=== PATIENT | male | born 1955 | race Hispanic/Latino ===

== ENCOUNTER 2021-04-11 11:28 | Emergency (ER) | payer SELFPAY ==
[2021-04-11 12:35] LABS: #Monocytes 0.3 10x3/uL (0.0-1.1); #Neutrophils 5.9 10x3/uL (1.5-8.4); %Basophils 0.1 % (0.0-2.0); %Monocytes 4.4 % (0.0-10.0); %Neutrophils 86.9 % (40.0-75.0); Hemoglobin 16.2 g/dL (13.5-17.5); Mean Corpuscular HGB CONC 34.5 g/dL (32.0-36.0); Mean Corpuscular Hemoglobin 31.8 pg (27.0-33.0); Mean Corpuscular Volume 92.1 fl (81.2-95.1); Platelet Count 159 10x3/uL (150-450); RBC Distribution Width 12.1 % (11.5-14.5); Red Blood Cell (RBC) Count 5.09 10x6/uL (4.32-5.72); White Blood Cell (WBC) Count 6.8 10x3/uL (3.5-10.5)
[2021-04-11 12:46] LABS: ALT (SGPT) 28 U/L (8-55); AST (SGOT) 74 U/L (5-34); Albumin 3.9 g/dL (3.4-4.8); Alkaline Phosphatase 150 U/L (40-110); Anion Gap 17 mmol/L (10-20); BUN (Urea Nitrogen) 8 mg/dL (8.4-25.7); Bilirubin, Total 0.5 mg/dL (0.2-1.2); Calc. Creatinine Clearance 0 mL/min (70-130); Calcium 8.1 mg/dL (7.8-10.44); Carbon Dioxide 24 mmol/L (23-31); Chloride 98 mmol/L (98-107); Globulin 2.7 g/dL (2.4-3.5); Glucose 144 mg/dL (80-115); Potassium 4.1 mmol/L (3.5-5.1); Protein, Total 6.6 g/dL (5.8-8.1); Sodium 135 mmol/L (136-145)
== END 2021-04-11 16:52 | disposition home or self-care (01) ==
LOC: CSHERS 11:28
DX: U07.1 COVID-19 (principal); J12.82 Pneumonia due to coronavirus disease 2019; J20.8 Acute bronchitis due to other specified organisms
CPT/HCPCS: 71275; 80053; 83605; 84484; 85025; 85379; 93005

== ENCOUNTER 2021-04-11 20:17 | Inpatient (IN) | payer MEDICARE ==
[2021-04-11] MEDS ORDERED: HYDROcodone/Acetaminophen 5/325 mg Tablet PO PRN (23:13)
[2021-04-11] MEDS ORDERED: Ondansetron PF 4 MG/2 ML Vial IVP PRN (23:13)
[2021-04-11] MEDS ORDERED: Acetaminophen 325 MG TAB PO PRN (23:13)
[2021-04-11] MEDS ORDERED: Zolpidem Tartrate 5 MG TAB PO PRN (23:13)
[2021-04-11] MEDS ORDERED: Calcium Carbonate 500 MG ChewTAB PO PRN (23:13)
[2021-04-11] MEDS ORDERED: Senokot S 8.6-50 MG TAB PO PRN (23:13)
[2021-04-11] MEDS ORDERED: Sodium Chloride 0.9% 500 ML IV SCH (23:30)
[2021-04-12 02:20] VITALS: BMI 25.8
[2021-04-12] MEDS ORDERED: Dexamethasone 4 mg/ml Vial SLOW IVP SCH (02:45)
[2021-04-12] MEDS ORDERED: FLU VACC QS2021-22(65YR UP)/PF 240 MCG/0.7 ML SYRINGE IM ONE (04:45)
[2021-04-12 05:06] LABS: #Monocytes 0.3 10x3/uL (0.0-1.1); #Neutrophils 5.8 10x3/uL (1.5-8.4); %Basophils 0.2 % (0.0-2.0); %Lymphocytes 7.3 % (18.0-47.0); %Monocytes 4.5 % (0.0-10.0); %Neutrophils 87.5 % (40.0-75.0); Mean Corpuscular HGB CONC 34.8 g/dL (32.0-36.0); Mean Corpuscular Hemoglobin 31.8 pg (27.0-33.0); Mean Corpuscular Volume 91.4 fl (81.2-95.1); Platelet Count 164 10x3/uL (150-450); RBC Distribution Width 12.5 % (11.5-14.5); White Blood Cell (WBC) Count 6.6 10x3/uL (3.5-10.5)
[2021-04-12 05:19] LABS: ALT (SGPT) 21 U/L (8-55); AST (SGOT) 56 U/L (5-34); Alkaline Phosphatase 118 U/L (40-110); Anion Gap 13 mmol/L (10-20); BUN (Urea Nitrogen) 7 mg/dL (8.4-25.7); Bilirubin, Total 0.4 mg/dL (0.2-1.2); CRP (Inflammatory) 15.84 mg/dL (= or < 0.5); Calc. Creatinine Clearance 88 mL/min (70-130); Calcium 7.9 mg/dL (7.8-10.44); Carbon Dioxide 23 mmol/L (23-31); Chloride 103 mmol/L (98-107); Globulin 2.7 g/dL (2.4-3.5); Glucose 128 mg/dL (80-115); Potassium 4.1 mmol/L (3.5-5.1); Protein, Total 5.7 g/dL (5.8-8.1); Sodium 135 mmol/L (136-145)
[2021-04-12] MEDS ORDERED: Ventolin HFA Inhaler 60 PUFF INHALER INH PRN (07:00)
[2021-04-12] MEDS ORDERED: REMDESIVIR 200 MG in Sodium Chloride 0.9% 250 ML 210 ML IV SCH (09:00)
[2021-04-12] MEDS: Zinc Gluconate 50 MG TAB PO SCH (10:43)
[2021-04-12] MEDS: Enoxaparin Sodium 40 MG/0.4 ML SYRINGE SC SCH ×2 (10:43→22:34)
[2021-04-12] MEDS: Benzonatate 100 MG CAP PO SCH ×3 (10:44→22:33)
[2021-04-12] MEDS: Cholecalciferol 1,000 UNITS (25 MCG) TAB PO SCH (10:44)
[2021-04-12] MEDS: Aspirin 81 mg Enteric Coated Tablet PO SCH (10:44)
[2021-04-12] MEDS: Ascorbic Acid 500 mg Chewable Tablet PO SCH (10:44)
[2021-04-12] MEDS: Dexamethasone 4 mg/ml Vial SLOW IVP SCH (22:34)
[2021-04-13 05:50] LABS: ALT (SGPT) 24 U/L (8-55); AST (SGOT) 53 U/L (5-34); Alkaline Phosphatase 113 U/L (40-110); Anion Gap 12 mmol/L (10-20); BUN (Urea Nitrogen) 17 mg/dL (8.4-25.7); Bilirubin, Total 0.4 mg/dL (0.2-1.2); CRP (Inflammatory) 11.96 mg/dL (= or < 0.5); Calc. Creatinine Clearance 78 mL/min (70-130); Calcium 8.4 mg/dL (7.8-10.44); Carbon Dioxide 26 mmol/L (23-31); Chloride 106 mmol/L (98-107); Globulin 2.8 g/dL (2.4-3.5); Glucose 161 mg/dL (80-115); Potassium 4.7 mmol/L (3.5-5.1); Protein, Total 5.8 g/dL (5.8-8.1); Sodium 139 mmol/L (136-145)
[2021-04-13 07:27] LABS: Hemoglobin 14.7 g/dL (13.5-17.5); Mean Corpuscular HGB CONC 34.8 g/dL (32.0-36.0); Mean Corpuscular Volume 92.2 fl (81.2-95.1); Platelet Count 195 10x3/uL (150-450); RBC Distribution Width 12.5 % (11.5-14.5); Red Blood Cell (RBC) Count 4.59 10x6/uL (4.32-5.72); White Blood Cell (WBC) Count 9.1 10x3/uL (3.5-10.5)
[2021-04-13 07:49] LABS: MDiff Complete? YES
[2021-04-13 07:52] LABS: Band 2 % (5-11); Lymphocytes 4 % (21-51); Monocytes 3 % (0-10); Neutrophil 90 % (42-75); Reactive Lymphocytes 1 % (0-10)
[2021-04-13 07:53] LABS: Platelet Morphology Comment Appears Adequate; RBC Morphology Normal
[2021-04-13] MEDS: Enoxaparin Sodium 40 MG/0.4 ML SYRINGE SC SCH ×2 (11:07→21:13)
[2021-04-13] MEDS: Cholecalciferol 1,000 UNITS (25 MCG) TAB PO SCH (11:07)
[2021-04-13] MEDS: REMDESIVIR 100 MG in Sodium Chloride 0.9% 250 ML 230 ML IV SCH (11:07)
[2021-04-13] MEDS: Ascorbic Acid 500 mg Chewable Tablet PO SCH (11:07)
[2021-04-13] MEDS: Benzonatate 100 MG CAP PO SCH ×3 (11:07→21:13)
[2021-04-13] MEDS: Aspirin 81 mg Enteric Coated Tablet PO SCH (11:07)
[2021-04-13] MEDS: Zinc Gluconate 50 MG TAB PO SCH (11:08)
[2021-04-13] MEDS: Guaifenesin DM 100-10/5 ML UDCUP PO PRN ×2 (11:08→17:40)
[2021-04-13] MEDS: Dexamethasone 4 mg/ml Vial SLOW IVP SCH (21:12)
[2021-04-14 05:21] LABS: ALT (SGPT) 33 U/L (8-55); AST (SGOT) 55 U/L (5-34); Albumin 3.2 g/dL (3.4-4.8); Alkaline Phosphatase 121 U/L (40-110); Anion Gap 13 mmol/L (10-20); BUN (Urea Nitrogen) 19 mg/dL (8.4-25.7); Bilirubin, Total 0.4 mg/dL (0.2-1.2); Calc. Creatinine Clearance 90 mL/min (70-130); Calcium 8.3 mg/dL (7.8-10.44); Carbon Dioxide 25 mmol/L (23-31); Chloride 104 mmol/L (98-107); Globulin 2.8 g/dL (2.4-3.5); Glucose 159 mg/dL (80-115); Potassium 4.1 mmol/L (3.5-5.1); Sodium 138 mmol/L (136-145)
[2021-04-14 05:53] LABS: #Monocytes 0.6 10x3/uL (0.0-1.1); #Neutrophils 13.4 10x3/uL (1.5-8.4); %Basophils 0.1 % (0.0-2.0); %Lymphocytes 4.9 % (18.0-47.0); %Monocytes 3.9 % (0.0-10.0); %Neutrophils 90.4 % (40.0-75.0); Hemoglobin 15.2 g/dL (13.5-17.5); Mean Corpuscular HGB CONC 33.6 g/dL (32.0-36.0); Mean Corpuscular Volume 92.2 fl (81.2-95.1); Mean Platelet Volume 10.4 fl (7.4-10.4); Platelet Count 303 10x3/uL (150-450); RBC Distribution Width 12.3 % (11.5-14.5); White Blood Cell (WBC) Count 14.8 10x3/uL (3.5-10.5)
[2021-04-14] MEDS: REMDESIVIR 100 MG in Sodium Chloride 0.9% 250 ML 230 ML IV SCH (08:30)
[2021-04-14] MEDS: Enoxaparin Sodium 40 MG/0.4 ML SYRINGE SC SCH ×2 (08:31→21:54)
[2021-04-14] MEDS: Cholecalciferol 1,000 UNITS (25 MCG) TAB PO SCH (08:32)
[2021-04-14] MEDS: Benzonatate 100 MG CAP PO SCH ×3 (08:32→21:53)
[2021-04-14] MEDS: Zinc Gluconate 50 MG TAB PO SCH (08:32)
[2021-04-14] MEDS: Ascorbic Acid 500 mg Chewable Tablet PO SCH (08:32)
[2021-04-14] MEDS: Aspirin 81 mg Enteric Coated Tablet PO SCH (08:32)
[2021-04-14] MEDS: Dexamethasone 4 mg/ml Vial SLOW IVP SCH (21:53)
[2021-04-14] MEDS: Melatonin 3 MG TAB PO PRN (21:53)
[2021-04-15 05:05] LABS: #Monocytes 0.6 10x3/uL (0.0-1.1); #Neutrophils 9.6 10x3/uL (1.5-8.4); %Basophils 0.2 % (0.0-2.0); %Monocytes 5.1 % (0.0-10.0); Hemoglobin 14.7 g/dL (13.5-17.5); Mean Corpuscular HGB CONC 34.7 g/dL (32.0-36.0); Mean Corpuscular Hemoglobin 31.6 pg (27.0-33.0); Mean Corpuscular Volume 91.2 fl (81.2-95.1); Mean Platelet Volume 10.2 fl (7.4-10.4); Platelet Count 260 10x3/uL (150-450); RBC Distribution Width 12.1 % (11.5-14.5); Red Blood Cell (RBC) Count 4.65 10x6/uL (4.32-5.72); White Blood Cell (WBC) Count 10.8 10x3/uL (3.5-10.5)
[2021-04-15 05:16] LABS: ALT (SGPT) 68 U/L (8-55); AST (SGOT) 107 U/L (5-34); Albumin 2.9 g/dL (3.4-4.8); Alkaline Phosphatase 102 U/L (40-110); Anion Gap 11 mmol/L (10-20); BUN (Urea Nitrogen) 17 mg/dL (8.4-25.7); Bilirubin, Total 0.4 mg/dL (0.2-1.2); Calc. Creatinine Clearance 95 mL/min (70-130); Carbon Dioxide 25 mmol/L (23-31); Chloride 104 mmol/L (98-107); Globulin 2.5 g/dL (2.4-3.5); Glucose 153 mg/dL (80-115); Potassium 4.4 mmol/L (3.5-5.1); Protein, Total 5.4 g/dL (5.8-8.1); Sodium 136 mmol/L (136-145)
[2021-04-15] MEDS: Zinc Gluconate 50 MG TAB PO SCH (09:07)
[2021-04-15] MEDS: Benzonatate 100 MG CAP PO SCH ×3 (09:07→21:42)
[2021-04-15] MEDS: Aspirin 81 mg Enteric Coated Tablet PO SCH (09:08)
[2021-04-15] MEDS: Ascorbic Acid 500 mg Chewable Tablet PO SCH (09:08)
[2021-04-15] MEDS: Enoxaparin Sodium 40 MG/0.4 ML SYRINGE SC SCH ×2 (09:08→21:42)
[2021-04-15] MEDS: Cholecalciferol 1,000 UNITS (25 MCG) TAB PO SCH (09:08)
[2021-04-15] MEDS: REMDESIVIR 100 MG in Sodium Chloride 0.9% 250 ML 230 ML IV SCH (10:47)
[2021-04-15] MEDS: Melatonin 3 MG TAB PO PRN (21:42)
[2021-04-15] MEDS: Dexamethasone 4 mg/ml Vial SLOW IVP SCH (21:42)
[2021-04-16 04:30] LABS: #Monocytes 0.5 10x3/uL (0.0-1.1); #Neutrophils 12.1 10x3/uL (1.5-8.4); %Basophils 0.3 % (0.0-2.0); %Lymphocytes 5.1 % (18.0-47.0); %Monocytes 3.9 % (0.0-10.0); %Neutrophils 89.5 % (40.0-75.0); Hemoglobin 16.2 g/dL (13.5-17.5); Mean Corpuscular HGB CONC 34.8 g/dL (32.0-36.0); Mean Corpuscular Hemoglobin 31.9 pg (27.0-33.0); Mean Corpuscular Volume 91.7 fl (81.2-95.1); Mean Platelet Volume 10.3 fl (7.4-10.4); Platelet Count 346 10x3/uL (150-450); RBC Distribution Width 12.1 % (11.5-14.5); Red Blood Cell (RBC) Count 5.08 10x6/uL (4.32-5.72); White Blood Cell (WBC) Count 13.5 10x3/uL (3.5-10.5)
[2021-04-16 05:23] LABS: ALT (SGPT) 105 U/L (8-55); AST (SGOT) 156 U/L (5-34); Albumin 3.3 g/dL (3.4-4.8); Alkaline Phosphatase 119 U/L (40-110); Anion Gap 15 mmol/L (10-20); BUN (Urea Nitrogen) 17 mg/dL (8.4-25.7); Bilirubin, Total 0.5 mg/dL (0.2-1.2); Calc. Creatinine Clearance 96 mL/min (70-130); Calcium 8.4 mg/dL (7.8-10.44); Carbon Dioxide 23 mmol/L (23-31); Chloride 103 mmol/L (98-107); Globulin 2.8 g/dL (2.4-3.5); Glucose 148 mg/dL (80-115); Potassium 4.5 mmol/L (3.5-5.1); Protein, Total 6.1 g/dL (5.8-8.1); Sodium 136 mmol/L (136-145)
[2021-04-16] MEDS: Cholecalciferol 1,000 UNITS (25 MCG) TAB PO SCH (09:39)
[2021-04-16] MEDS: Zinc Gluconate 50 MG TAB PO SCH (09:39)
[2021-04-16] MEDS: Ascorbic Acid 500 mg Chewable Tablet PO SCH (09:39)
[2021-04-16] MEDS: Benzonatate 100 MG CAP PO SCH ×3 (09:39→21:50)
[2021-04-16] MEDS: Aspirin 81 mg Enteric Coated Tablet PO SCH (09:39)
[2021-04-16] MEDS: Enoxaparin Sodium 40 MG/0.4 ML SYRINGE SC SCH ×2 (09:39→21:50)
[2021-04-16] MEDS: REMDESIVIR 100 MG in Sodium Chloride 0.9% 250 ML 230 ML IV SCH (09:41)
[2021-04-16 21:01] LABS: HBCM Index 0.06 S/CO (0-0.79); HBSAg Index 0.22 S/CO (0-0.99); Hep A IgM AB Non-Reactive (NonReactive); Hep A IgM S/CO 0.07 S/CO (0-0.79); Hep B Surf Ag Non-Reactive S/CO (NonReactive); Hep C IgG Ab Non-Reactive (NonReactive); Hep C Index 0.21 S/CO (0-0.79); Hepatitis B Core IgM Abs Non-Reactive (NonReactive)
[2021-04-16] MEDS: Dexamethasone 4 mg/ml Vial SLOW IVP SCH (21:50)
[2021-04-17 06:32] LABS: ALT (SGPT) 87 U/L (8-55); AST (SGOT) 73 U/L (5-34); Albumin 2.9 g/dL (3.4-4.8); Alkaline Phosphatase 88 U/L (40-110); Anion Gap 11 mmol/L (10-20); BUN (Urea Nitrogen) 19 mg/dL (8.4-25.7); Bilirubin, Total 0.4 mg/dL (0.2-1.2); Calc. Creatinine Clearance 96 mL/min (70-130); Calcium 8.1 mg/dL (7.8-10.44); Carbon Dioxide 24 mmol/L (23-31); Chloride 107 mmol/L (98-107); Globulin 2.3 g/dL (2.4-3.5); Glucose 150 mg/dL (80-115); Potassium 4.4 mmol/L (3.5-5.1); Protein, Total 5.2 g/dL (5.8-8.1); Sodium 138 mmol/L (136-145)
[2021-04-17 07:39] LABS: #Monocytes 0.5 10x3/uL (0.0-1.1); #Neutrophils 7.9 10x3/uL (1.5-8.4); %Basophils 0.2 % (0.0-2.0); %Lymphocytes 5.6 % (18.0-47.0); %Monocytes 5.3 % (0.0-10.0); %Neutrophils 87.6 % (40.0-75.0); Hemoglobin 14.8 g/dL (13.5-17.5); Mean Corpuscular Hemoglobin 31.7 pg (27.0-33.0); Mean Corpuscular Volume 90.6 fl (81.2-95.1); Platelet Count 269 10x3/uL (150-450); RBC Distribution Width 12.3 % (11.5-14.5); Red Blood Cell (RBC) Count 4.67 10x6/uL (4.32-5.72); White Blood Cell (WBC) Count 9.1 10x3/uL (3.5-10.5)
[2021-04-17] MEDS: Zinc Gluconate 50 MG TAB PO SCH (10:15)
[2021-04-17] MEDS: Aspirin 81 mg Enteric Coated Tablet PO SCH (10:15)
[2021-04-17] MEDS: Enoxaparin Sodium 40 MG/0.4 ML SYRINGE SC SCH (10:16)
[2021-04-17] MEDS: Benzonatate 100 MG CAP PO SCH (10:16)
[2021-04-17] MEDS: Ascorbic Acid 500 mg Chewable Tablet PO SCH (10:16)
[2021-04-17] MEDS: Cholecalciferol 1,000 UNITS (25 MCG) TAB PO SCH (10:16)
[2021-04-17 12:10] VITALS: BP 136/78; TEMP 97.8
== END 2021-04-17 14:43 | disposition home or self-care (01) | DRG 871 ==
LOC: CSHERS 20:17 → CSHTELE 04-12 02:14
PROVIDERS: ADMIT Student in an Organized Health Care Education/Training Program; ATTEND Internal Medicine
PROC: 8E0ZXY6 Isolation (ICD-10-PCS; principal; 2021-04-12)
PROC: XW033E5 Introduction of Remdesivir Anti-infective into Peripheral Vein, Percutaneous Approach, New Technology Group 5 (ICD-10-PCS; 2021-04-12)
PROC: 3E0333Z Introduction of Anti-inflammatory into Peripheral Vein, Percutaneous Approach (ICD-10-PCS; 2021-04-12)
DX: A41.89 Other specified sepsis (principal); U07.1 COVID-19; J12.82 Pneumonia due to coronavirus disease 2019; J96.01 Acute respiratory failure with hypoxia; R65.20 Severe sepsis without septic shock; R73.9 Hyperglycemia, unspecified; Z79.82 Long term (current) use of aspirin; Z79.899 Other long term (current) drug therapy
CPT/HCPCS: 36415; 80053; 80074; 82728; 85025; 85379; 86140; 94760; 94762; 99285; J1100; J1650; J7030; J7050